=== PATIENT | male | born 1945 | race Caucasian/White ===

== ENCOUNTER → 2022-07-20 | Outpatient (RCR) | payer OTHER | END | disposition home or self-care (01) | PROVIDERS: ATTEND Nurse Practitioner | DX: M62.81 Muscle weakness (generalized) (principal) ==

== ENCOUNTER 2022-08-05 11:11 | Outpatient (RCR) | payer OTHER | END 2022-08-05 11:50 | disposition home or self-care (01) | PROVIDERS: ATTEND Nurse Practitioner | DX: M62.81 Muscle weakness (generalized) (principal); E11.9 Type 2 diabetes mellitus without complications; Z79.4 Long term (current) use of insulin ==